=== PATIENT | male | born 1945 | race Caucasian/White ===

== ENCOUNTER 2017-02-13 13:23 | Observation (INO) | payer OTHER ==
[~2017-02-13] VITALS: Ht 180.3 cm; Wt 96.2 kg
[~2017-02-13 13:23] MED LIST: ADDERALL 15 MG15 MG PO; ALLOPURINOL100 M1 PO; AMLODIPINE BESYL5 M1 PO; ASPIRIN EC81 M1 PO; BRILINTA90 MG PO; BUPROPION XL150 MG PO; CLOPIDOGREL75 M1 PO; ELIQUIS5 M1 PO; FLU VACCINE 0.0.5 ML IM; JANUMET 50-1,01 EACH PO; LASIX20 M1 PO; LISINOPRIL20 MG PO; METOPROLOL SUCC25 MG PO; MOTRIN400 MG PO; PERCOCET 325 MG1 TA2 PO; PRAVACHOL80 M1 PO; TYLENOL XSTR500 MG PO; VALIUM5 MG PO
--- NOTE | 2017-02-13 13:36 | NUR ---
71 Y/O MALE C/O INTERMITTENT DIZZY SPELLS X 2 WEEKS; STATES "ITS QUICK BUT INTENSE". STATES EPISODES LAST 5-10 SECONDS AT A TIME. HAD TWO EPISODES TODAY. REPORTS NAUSEA WITH DIZZINESS. DENIES PAIN. DENIES SOB. DENIES CHANGES IN APPETITE/PO INTAKE. HAS NOT BEEN SPENDING A LOT OF TIME IN THE HEAT. SPEAKING CLEARLY WITH NO DEFICITS NOTED. TAKEN TO ROOM 12 FOR EKG AND EVAL
--- NOTE | 2017-02-13 13:55 | NUR ---
IV ESTABLISHED, ORTHOSTATIC'S COMPLETED BY CASSANDRA AYERS, PT PLACED ON LIBRARY ASSOCIATE, INFREQUENT PVC'S NOTED.
--- NOTE | 2017-02-13 13:56 | ED AMS/SEIZURE/WEAK/DIZZY ---
History of Present Illness General Chief Complaint: Dizziness Stated Complaint: DIZZY Source: patient, family, old records Exam Limitations: no limitations Vital Signs & Intake/Output Vital Signs & Intake/Output ED Intake and Output 02/15 0000 02/14 1200 Intake Total 600 Output Total 525 550 Balance 75 -550 Intake, Oral 600 Number 1 Bowel Movements Output, Urine 525 550 Patient 212 lb Weight Allergies Coded Allergies: NO KNOWN ALLERGIES (09/30/12) Reconcile Medications Allopurinol 100 MG TABLET 1 TAB PO DAILY GOUT (Reported) Amlodipine Besylate 5 MG TABLET 1 TAB PO DAILY BP (Reported) Apixaban (Eliquis) 5 MG TABLET 1 TAB PO BID anti-coagulation Aspirin (Ecotrin*) 81 MG TABLET.DR 1 TAB PO DAILY HEART HEALTH (Reported) Bupropion HCl (Bupropion XL) 150 MG TAB.ER.24H 1 TAB PO DAILY DEPRESSION ( Reported) Dextroamphetamine/Amphetamine (Adderall 15 MG Tablet) 15 MG TABLET 1 TAB PO DAILY ADD (Reported) Lisinopril 10 MG TABLET 1 TAB PO DAILY HEART (Reported) Metformin HCl 500 MG TABLET 1 TAB PO BID DIABETES (Reported) Metoprolol Tartrate 25 MG TABLET 1.5 TAB PO BID HEART (Reported) Pravastatin Sodium (Pravachol) 80 MG TABLET 1 TAB PO QPM CHOLESTEROL ( Reported) Triage Note: 71 Y/O MALE C/O INTERMITTENT DIZZY SPELLS X 2 WEEKS; STATES "ITS QUICK BUT INTENSE". STATES EPISODES LAST 5-10 SECONDS AT A TIME. HAD TWO EPISODES TODAY. REPORTS NAUSEA WITH DIZZINESS. DENIES PAIN. DENIES SOB. DENIES CHANGES IN APPETITE/PO INTAKE. HAS NOT BEEN SPENDING A LOT OF TIME IN THE HEAT. SPEAKING CLEARLY WITH NO DEFICITS NOTED. TAKEN TO ROOM 12 FOR EKG AND EVAL Triage Nurses Notes Reviewed? yes Onset: Abrupt Duration: 1.5 WEEKS Timing: single episode today Injury Environment: home Severity: moderate, severe No Modifying Factors: none Associated Symptoms: DIZZINESS, BLURRED VISION HPI: This is a 71-year-old male with history of coronary disease, 3 vessel bypass, aortic valve replacement and a MRSA procedure in October of this year who presents to the ER with chief complaint of episodes of dizziness. In the last 1-1/2 weeks he has had 4 episodes where he complains of an intense sensation of wanting to pass out. The episodes happen at rest. The resolve within 5-10 seconds. Occasionally has some nausea associated with the episode. Denies any headache. Denies any blurred vision Denies any chest pain or shortness of breath. He has been compliant with his medications. He states that he does not take anything for the episodes because they happen and resolved very spontaneously. Today it happened while he was in the car. He is awake alert and oriented 3. The states that since his surgery he has had a few episodes where he doesn't make sense or uses the wrong word. Patient reports that after this procedure in [place] he had a difficult time moving his right arm. He was seen by a neurologist that had a CAT scan at that time. CAT scan showed evidence of old TIAs. Faculty swallowing or speaking. No extremity strength weakness. No facial droop. At this time he is symptom-free. Past History Travel History Traveled to [facility] past 21 day No Medical History Any Pertinent Medical History? 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 FATHER (Heart disease). Hx Contributory? No Review of Systems Review of Systems Constitutional: Denies: chills, diaphoresis. EENTM: Reports: blurred vision (BRIEF WITH EPISODES). Respiratory: Denies: see HPI, orthopnea, short of breath, sputum production. Cardiovascular: Denies: chest pain, palpitations, peripheral edema. GI: Denies: abdominal pain, nausea, vomiting. Genitourinary: Denies: discharge, dysuria. Musculoskeletal: Denies: back pain. Skin: Reports: no symptoms. Neurological/Psychological: Reports: see HPI (DIZZINESS), confusion (OCCASIONAL PER WIFEW). Denies: headache, numbness, tremors. Hematologic/Endocrine: Denies: bruising, bleeding, polyuria, polydipsia. Immunologic/Allergic: Denies: splenectomy. All Other Systems: Reviewed and Negative Physical Exam Physical Exam General Appearance: well developed/nourished, alert, awake, mild distress Head: atraumatic, normal appearance Eyes: Bilateral: normal appearance, PERRL, EOMI. Ears, Nose, Throat: normal pharynx, normal ENT inspection, hearing grossly normal Neck: normal inspection, supple, full range of motion Respiratory: normal breath sounds, chest non-tender, no respiratory distress, HEALING STERNOTOMY WOUND Cardiovascular: regular rate/rhythm, murmur Peripheral Pulses: 2+ radial (R), 2+ radial (L) Gastrointestinal: normal bowel sounds, soft, non-tender Back: normal inspection, normal range of motion Extremities: normal range of motion Neurologic/Psych: no motor/sensory deficits, awake, alert, oriented x 3, normal gait, normal mood/affect Skin: intact, normal color, warm/dry Core Measures ACS in differential dx? No CVA/TIA Diagnosis: Yes NIH Stroke Scale: Total 0 Severe Sepsis Present: No Septic Shock Present: No Progress Differential Diagnosis: CVA/stroke, intracranial Hem., intracranial mass/tumor, vertebrobasilar insuff Plan of Care: Orders Procedure Date/time Status Heart Healthy Diet 02/[address] in observation 02/13 1634 Active ED Holding Orders 02/13 1634 Active Vital Signs 02/13 1634 Active MRI-HEAD W/O TIERA 02/13 1634 Active Code Status 02/13 1634 Active THYROID STIMULATING HORMONE 02/13 1415 Complete FREE T4 02/13 1415 Complete MISTAKE 02/13 1413 Active TROPONIN LEVEL 02/13 1413 Complete PARTIAL THROMBOPLASTIN TIME 02/13 1413 Complete PROTHROMBIN TIME 02/13 1413 Complete MAGNESIUM 02/13 1413 Complete COMPREHENSIVE METABOLIC PANEL 02/13 1413 Complete CBC WITHOUT DIFFERENTIAL 02/13 1413 Complete EKG 02/13 1334 Active Laboratory Tests 02/13/17 1415: TSH Cancelled, Free T4 Cancelled 02/13/17 1415: Anion Gap 11, Estimated GFR 60, BUN/Creatinine Ratio 15.0, Glucose 157 H, Calcium 9.7, Magnesium 2.0, Total Bilirubin 0.5, AST 41, ALT 56, Alkaline Phosphatase 129 H, Troponin I < 0.01, Total Protein 7.0, Albumin 4.3, Globulin 2.7, Albumin/Globulin Ratio 1.6, TSH 4.630 H, Free T4 1.18, PT 16.9 H, INR 1.62 H, APTT 28, CBC w Diff NO MAN DIFF REQ, RBC 4.39 L, MCV 81.6, MCH 26.5 L , RDW 15.8 H, MPV 10.8 H, Gran % 74.1, Lymphocytes % 14.0 L, Monocytes % 9.1, Eosinophils % 1.8, Basophils % 1.0, Absolute Granulocytes 5.4, Absolute Lymphocytes 1.0 L, Absolute Monocytes 0.7 H, Absolute Eosinophils 0.1, Absolute Basophils 0.1, PUBS MCHC 32.5 L Diagnostic Imaging: Viewed by Me: CT Scan. Discussed w/RAD: CT Scan. Initial ED EKG: NSR Rhythm Strip: normal sinus rhythm Comments: PATIENT: NEHEMIAH MOULTON PRESENT AGE: 71 PATIENT ACCOUNT NO: [id number] : 44 LOCATION: [facility] ORDERING PHYSICIAN: HILLARY CANTU MD SERVICE DATE: 02/13/17 EXAM TYPE: CAT - CT HEAD WO IV CONTRAST EXAMINATION: CT HEAD WITHOUT CONTRAST CLINICAL INFORMATION: Sudden onset of episodes of dizziness, 5 to 10 seconds. Feels near syncopal. Recent CABG and AVR. Evaluate for TIA/CVA. COMPARISON: CT scan of the head dated 07/05/2014 and 09/30/2012. TECHNIQUE: Contiguous axial imaging was performed from the skull base to vertex without intravenous administration of contrast. DLP: 615.74 mGy-cm FINDINGS: There is no evidence of acute intracranial hemorrhage or territorial infarction. There are, however, small lacunar infarction seen in the right and left centrum semiovale with slightly indistinct margins, suggesting acute or subacute etiology. These findings are new compared to the prior head CT scans. There is a chronic small lacunar infarction seen more superiorly within the left centrum semiovale, unchanged. No abnormal mass effect or midline shift is seen. Ceron to white matter differentiation is otherwise well preserved. No extra-axial fluid collections are identified. The ventricles are normal in size. Calcifications of the vertebral arteries and the carotid siphons are seen. The osseous structures and soft tissues of the head are normal. Moderate degenerative disc disease is seen at the C5-C6 level. The mastoid air cells and visualized portions of the paranasal sinuses are well aerated. IMPRESSION: 1. Small lacunar infarctions are seen in the right and left centrum semiovale, new from 07/05/2014, acute or subacute in etiology. Findings could be further assessed with MRI scan. 2. No evidence of acute intracranial hemorrhage or territorial infarction. Findings discussed with Dr. Cantu 02/13/2017, 3:35 PM. DICTATED BY: VERITO SOLIS MD DATE/TIME DICTATED:02/13/171521 PHYSICIAN INDUSTRIAL:JUAN ALBERTO DATE/TIME TRANSCRIBED:02/13/171521 CONFIDENTIAL, DO NOT COPY WITHOUT APPROPRIATE AUTHORIZATION. <Electronically signed in Other Vendor System> SIGNED BY: VERITO SOLIS MD 1541 Departure Departure Time of Disposition: 1634 Disposition: STILL A PATIENT Condition: Stable Clinical Impression Primary Impression: Dizziness Referrals: BRIELLE LUQUE,INOCENCIO Churchill (PCP/Family) Departure Forms: Customer Survey General Discharge Information Observation Note Spoke With: SHIRA GRIGGS MD Physician Advisor Notified: ERICK KENT DO Place Patient In: Non-ED OBS Care Area Rationale for Observation: My rational for observation is as follows [TELE MONITOR, MRI HEAD, NEURO CONSULTATION, PULL RECORDS FROM [place] ].
--- NOTE | 2017-02-13 14:22 | NUR ---
LABS DRAWN AND SENT (BLUE, SST X2, LAV, REN, PINK). PT OFFERS NO SIGNIFICANT COMPLAINTS AT THIS TIME.
[2017-02-13 14:27] LABS: ABSOLUTE BASOPHIL COUNT 0.1 /CUMM (0.0-0.2); ABSOLUTE EOSINOPHIL COUNT 0.1 /CUMM (0.0-0.7); ABSOLUTE GRANULOCYTE CT 5.4 /CUMM (1.4-6.5); ABSOLUTE MONOCYTE COUNT 0.7 /CUMM (0.10-0.60); EOSINOPHIL % 1.8 % (0-5); GRANULOCYTE % 74.1 % (42.2-75.2); HEMATOCRIT 35.8 % (42-52); MEAN CORPUSCULAR HGB 26.5 PG (27.0-31.0); MEAN CORPUSCULAR HGB CONC 32.5 G/DL (33.0-37.0); MEAN CORPUSCULAR VOLUME 81.6 FL (80.0-94.0); MEAN PLATELET VOLUME 10.8 FL (7.4-10.4); PLATELET COUNT 253 /CUMM (130-400); RBC DISTRIBUTION WIDTH 15.8 % (11.5-14.5); RED BLOOD CELL CT 4.39 /CUMM (4.70-6.10)
--- NOTE | 2017-02-13 14:29 | NUR ---
PT REQUESTING TO USE THE BATHROOM, ENCOURAGED PT TO USE URINAL DUE TO COMING TO THE EMERGENCY DEPT FOR DIZZINESS. PT REFUSING TO USE URINAL, REQUESTING TO BE REMOVED FROM DEPARTMENTAL BUYER AND WALK TO BATHROOM. PT EDUCATED ON RISKS AND REASONS WHY THIS RN IS CONCERNED ABOUT HIM WALKING TO BATHROOM AND PT STATING "DONT WORRY I KNOW ITS AGAINST MEDICAL ADVICE". THIS RN EXPRESSED SERIOUS CONCERNS REGARDING PATIENT SAFETY IN AMBULATING AND PT CONTINUES TO REFUSE TO USE URINAL.
[2017-02-13 14:35] LABS: PT 16.9 SEC (9.4-12.5); PTT 28 SEC (25-37)
[2017-02-13] MEDS ORDERED: METFORMIN HCL500 M3 PO (14:52)
[2017-02-13] MEDS ORDERED: LISINOPRIL10 M1 PO (14:52)
[2017-02-13] MEDS ORDERED: METOPROLOL TART25 M1 PO (14:53)
--- NOTE | 2017-02-13 15:41 | CT SCAN REPORT ---
EXAMINATION: CT HEAD WITHOUT CONTRAST CLINICAL INFORMATION: Sudden onset of episodes of dizziness, 5 to 10 seconds. Feels near syncopal. Recent CABG and AVR. Evaluate for TIA/CVA. COMPARISON: CT scan of the head dated 07/05/2014 and 09/30/2012. TECHNIQUE: Contiguous axial imaging was performed from the skull base to vertex without intravenous administration of contrast. DLP: 615.74 mGy-cm FINDINGS: There is no evidence of acute intracranial hemorrhage or territorial infarction. There are, however, small lacunar infarction seen in the right and left centrum semiovale with slightly indistinct margins, suggesting acute or subacute etiology. These findings are new compared to the prior head CT scans. There is a chronic small lacunar infarction seen more superiorly within the left centrum semiovale, unchanged. No abnormal mass effect or midline shift is seen. Ceron to white matter differentiation is otherwise well preserved. No extra-axial fluid collections are identified. The ventricles are normal in size. Calcifications of the vertebral arteries and the carotid siphons are seen. The osseous structures and soft tissues of the head are normal. Moderate degenerative disc disease is seen at the C5-C6 level. The mastoid air cells and visualized portions of the paranasal sinuses are well aerated. IMPRESSION: 1. Small lacunar infarctions are seen in the right and left centrum semiovale, new from 07/05/2014, acute or subacute in etiology. Findings could be further assessed with MRI scan. 2. No evidence of acute intracranial hemorrhage or territorial infarction. Findings discussed with Dr. Cantu 02/13/2017, 3:35 PM.
--- NOTE | 2017-02-13 15:45 | NUR ---
DR PERSON TO BEDSIDE TO DISCUSS RESULTS.
--- NOTE | 2017-02-13 16:13 | NUR ---
ALMA ITNERIANO AND DR PERSON ATTEMPTING TO COORDINATE OUTPATIENT MRI AT [facility], PT RESTING COMFORTABLY, DENIES ANY NEEDS AT THIS TIME.
--- NOTE | 2017-02-13 16:58 | History & Physical ---
KENDRA LUQUE,[facility] 02/13/17 1262: General Information and HPI MD Statement: I have seen and personally examined NEHEMIAH MOULTON and documented this H&P. The patient is a 71 year old M who presented with a patient stated chief complaint of dizziness Source of Information: patient, old records History of Present Illness: Patient is a 70-year-old man with a past medical history significant for coronary artery disease status post stent placement 2012 -after abnormal stress test (follows up with Dr. Rizvi), history of hypertension, aortic stenosis, history of depression, gout, diabetes mellitus presented to the ED with a chief complaints multiple episodes of dizziness. As per patient for the last week and a half he has been having several episodes of dizziness and a feeling that he will pass out, denies any episodes of passing out, nausea, vomiting, blurred vision, headache, shortness of breath, chest pain , palpitation, recent travels, fever, chills. Denies any recent changes in medication. Has been eating and drinking well. Denies any smoking, occasional alcohol use, denies any drug abuse. 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 Allergies/Medications Allergies: Coded Allergies: NO KNOWN ALLERGIES (09/30/12) Home Med list Allopurinol 100 MG TABLET 1 TAB PO DAILY GOUT (Reported) Amlodipine Besylate 5 MG TABLET 1 TAB PO DAILY BP (Reported) Apixaban (Eliquis) 5 MG TABLET 1 TAB PO BID anti-coagulation Aspirin (Ecotrin*) 81 MG TABLET.DR 1 TAB PO DAILY HEART HEALTH (Reported) Bupropion HCl (Bupropion XL) 150 MG TAB.ER.24H 1 TAB PO DAILY DEPRESSION ( Reported) Dextroamphetamine/Amphetamine (Adderall 15 MG Tablet) 15 MG TABLET 1 TAB PO DAILY ADD (Reported) Lisinopril 10 MG TABLET 1 TAB PO DAILY HEART (Reported) Metformin HCl 500 MG TABLET 1 TAB PO BID DIABETES (Reported) Metoprolol Tartrate 25 MG TABLET 1.5 TAB PO BID HEART (Reported) Pravastatin Sodium (Pravachol) 80 MG TABLET 1 TAB PO QPM CHOLESTEROL ( Reported) Compliance With Home Meds: GOOD Past History Travel History Traveled to [place] past 21 day No Medical History Neurological: TIA X2 EENT: NONE Cardiovascular: aortic stenosis, CAD, hypertension, hyperlipidemia Respiratory: NONE Gastrointestinal: NONE Hepatic: NONE Renal: KIDNEY STONES Musculoskeletal: gout Psychiatric: NONE Endocrine: diabetes Blood Disorders: HEPATITIS Cancer(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 FATHER (Heart disease). Psychosocial History Where do you live? Home Who Do You Live With? spouse Services at Home: None Primary Language: Tongan Smoking Status: Never Smoked ETOH Use: occasional use Illicit Drug Use: denies illicit drug use Functional Ability ADLs Independent: dressing, eating, toileting, bathing. Ambulation: independent IADLs Independent: shopping, housework, finances, food prep, telephone, transportation , medication admin. Review of Systems Review of Systems Constitutional: Denies: chills, fever. Cardiovascular: Denies: chest pain, palpitations. Respiratory: Denies: cough, short of breath, sputum production. GI: Denies: abdominal pain, constipation, diarrhea, nausea, vomiting. Genitourinary: Denies: dysuria, frequency. Exam & Diagnostic Data Last 24 Hrs of Vital Signs/I&O Vital Signs Date Time Temp Pulse Resp B/P B/P Pulse O2 O2 Flow FiO2 Mean Ox Delivery Rate 02/13 1859 98.5 73 20 156/80 95 Room Air 02/13 1745 97.8 73 18 172/79 96 02/13 1614 98.3 74 15 121/77 100 Room Air 02/13 1353 99 Room Air 02/13 1333 97.5 75 16 133/69 98 Room Air Intake & Output 02/13 1600 02/13 0800 02/13 0000 Intake Total 450 Output Total Balance 450 Intake, Oral 450 Patient 96.162 kg Weight Weight Reported by Patient Measurement Method Physical Exam General Appearance Alert, Oriented X3, Cooperative, No Acute Distress Cardiovascular Regular Rate, Normal S1, Normal S2, No Murmurs Lungs Clear to Auscultation, Normal Air Movement Abdomen Normal Bowel Sounds, Soft, No Tenderness Extremities No Clubbing, No Cyanosis, No Edema Last 24 Hrs of Labs/Zaid: Laboratory Tests 02/13/17 1415: TSH Cancelled, Free T4 Cancelled 02/13/17 1415: Anion Gap 11, Estimated GFR 60, BUN/Creatinine Ratio 15.0, Glucose 157 H, Calcium 9.7, Magnesium 2.0, Total Bilirubin 0.5, AST 41, ALT 56, Alkaline Phosphatase 129 H, Troponin I < 0.01, Total Protein 7.0, Albumin 4.3, Globulin 2.7, Albumin/Globulin Ratio 1.6, TSH 4.630 H, Free T4 1.18, PT 16.9 H, INR 1.62 H, APTT 28, CBC w Diff NO MAN DIFF REQ, RBC 4.39 L, MCV 81.6, MCH 26.5 L , RDW 15.8 H, MPV 10.8 H, Gran % 74.1, Lymphocytes % 14.0 L, Monocytes % 9.1, Eosinophils % 1.8, Basophils % 1.0, Absolute Granulocytes 5.4, Absolute Lymphocytes 1.0 L, Absolute Monocytes 0.7 H, Absolute Eosinophils 0.1, Absolute Basophils 0.1, PUBS MCHC 32.5 L Assessment/Plan Assessment: Patient is a 70-year-old man with a past medical history significant for coronary artery disease status post stent placement 2012 -after abnormal stress test (follows up with Dr. Rizvi), history of hypertension, aortic stenosis, history of depression, gout, diabetes mellitus presented to the ED with a chief complaint of multiple episodes of dizziness. Vitals upon presentation afebrile, pulse 75, respiratory rate 16, blood pressure 133/69, saturating in high 90s on room air. Pertinent labs H&H 11.6 and 35.8, otherwise is within normal limits. ED head did not show any acute intracranial abnormality, Small lacunar infarctions are seen in the right and left centrum semiovale Patient was admitted to telemetry floor and monitor for the following conditions. Dizziness: Continuous telemetry monitoring for any cardiac arrhythmias We'll trend EKG and troponins Echocardiogram done on 03/05/2016 showed ejection fraction of 55% No obvious regional wall motion abnormalities. Orthostatic vitals Cardiology consult PT evaluation in a.m. Diastolic heart failure(stage I) with preserved EF and moderate aortic stenosis: As per patient he stopped taking Lasix couple of weeks ago as per cardiology recommendations. History of fibrillation: We'll continue home dose of metoprolol and Eliquis. History of hypertension and coronary artery disease status post stent placement (2012) We'll continue home dose of we'll continue home dose of metoprolol, pravastatin, aspirin. History of diabetes Metformin on hold. NovoLog sliding scale. Fingerstick glucose monitoring Carbohydrate consistent diet . History of anxiety and depression: We'll continue home dose of bupropion. History of gout We'll continue home dose of allopurinol. History of ADHD Hold off of Adderall Mild pain particularly with Tylenol DVT prophylaxis Davis Patient is full code As Ranked By This Provider Problem List: 1. Dizziness Core Measures/Miscellaneous Acute Coronary Syndrome ACS Diagnosis: No Cerebrovascular Accident CVA/TIA Diagnosis: No Congestive Heart Failure CHF Diagnosis: No VTE (View Protocol) VTE Risk Factors: Acute medical illness, Age > 40 No [facility] VTE prophylaxis d/t: No contraindications No VTE Pharm Prophylaxis d/t: No contraindications VTE Diagnosis: No VTE Type: NONE VTE Confirmed by (Test): NONE Sepsis (View Protocol) Severe Sepsis Present: No Septic Shock Septic Shock Present: No Miscellaneous Documentation Attending Case Discussed With: SHIRA GRIGGS MD Primary Care Physician: INOCENCIO HANNAH MD Level of Patient Care: Telemetry SHIRA GRIGGS MD 02/13/17 2212: Attending MD Review Statement Attending Statement Attending MD Statement: examined this patient, discuss w/resident/PA/LEGAL EXECUTIVE ASSISTANT, agreed w/resident/PA/LEGAL EXECUTIVE ASSISTANT, reviewed EMR data (avail) Attending Assessment/Plan: 71M PMH recent 3v-CABG, AVR, with 4 episodes of sudden onset of lightheadedness in the past 2 weeks. No neurological symptoms, denies chest pain, palpitations, SOB. CT head showing old lacunar infarcts. Neuro exam normal. No active complaints at this time. Plan - Observation in telemetry - Trend cardiac enzymes and EKG - MRI head - Neurology and cardiology consults - Continue home medications including ASA and statin - DVT Ppx NEGRO MCCLAIN 02/13/17 2253: Core Measures/Miscellaneous Miscellaneous Documentation Patient sees these Specialists . Resident Review Statement Resident Statement: examined this patient, discussed with manager internal, agreed with manager internal Other Findings: This is a 71-year-old gentleman with past medical history significant for CAD status post 3v CABG, HTN, DM, gout, hyperlipidemia who presented to the ED w/CC of dizziness for 1.5 weeks. Please see above for more details. Ph/ex on admission: VSS, AAOx3, NAD neck supple no JVD, no carotid bruits. CV: RRR no murmur. Lungs CTABL. Abd: NL BS, NT,ND. Ext: No edema, pulses symmetrical. Neurology exam: CN 3-12 intact, sensation and reflexes NL. Passed bedside swallow evaluation test. Pertinent labs: Normocytic anemia, elevated ALKP, TSH: 4.630. Head CT reveals small lacunar infarcts in Rt and Lt centrum semiovale(acute vs subacute). Problem list: #Lacunar infarcts acute vs subacute #DM #HTN #Gout #hyperlipidemia Plan: * school lunch monitor * frequent neurochecks * Accuchecks;INS ss * MRI head * trend trop and EKGS * consider echocardiogram * carotid doppler * Pt is on low dose ASA which he takes at nights. Did not take ASA today. Will give full dose ASA today, resume low dose ASA starting tomorrow * Neurology and caridiology consults. * Will start the patient on high dose statin * PT/OT , fomral swallow evaluation * DVT ppx at all times * Pt is full code
--- NOTE | 2017-02-13 17:34 | NUR ---
[facility] 111, PT EATING DINNER QUIETLY, DENIES ANY ADDTL NEEDS AT THIS TIME
--- NOTE | 2017-02-13 17:41 | NUR ---
PT HAS BED ASSIGNMENT 182. RN NOTIFIED.
[2017-02-13 18:59] VITALS: BP 156/80
--- NOTE | 2017-02-13 21:46 | NUR ---
PT ARRIVED TO ROOM 182 AT ABOUT 1815 ON 02/13/17. VSS. NO C/O CP. NO RESPIRATORY DISTRESS. SPEECH CLEAR. FACIAL SYM WNL. PT ORRIENTED TO ROOM. PT ON STRICT I/O. AND STOOL NEEDS TO BE GUIAC. TWO HATS ARE IN TOILET. SAFETY MAINTAINED. [facility]
[2017-02-13 22:00] VITALS: BP 140/80
--- NOTE | 2017-02-14 07:16 | PN-Observation ---
KENDRA LUQUE,[facility] 02/14/17 0716: Observation Note Observation Note _ I have personally examined NEHEMIAH MOULTON. him disposition is uncertain at this time. Before a determination can be made, he requires continued observation for the following reasons dizziness, etiology not clear, patient to be seen by cardiology and neurology, Pending MRI, carotid Doppler. Assessment/Plan Assessment: Patient is a 70-year-old man with a past medical history significant for coronary artery disease status post stent placement 2012 -after abnormal stress test (follows up with Dr. Rizvi), history of hypertension, aortic stenosis, history of depression, gout, diabetes mellitus presented to the ED with a chief complaint of multiple episodes of dizziness. Vitals upon presentation afebrile, pulse 75, respiratory rate 16, blood pressure 133/69, saturating in high 90s on room air. Pertinent labs H&H 11.6 and 35.8, otherwise is within normal limits. ED head did not show any acute intracranial abnormality, Small lacunar infarctions are seen in the right and left centrum semiovale Patient was admitted to telemetry floor and monitor for the following conditions. Dizziness: Continuous telemetry monitoring for any cardiac arrhythmias EKG and troponins negative CT head showed evidence of lacunar infarcts unsure if acute or chronic, will get MRI for more clarification Patient to get carotid Dopplers today Echocardiogram done on 03/05/2016 showed ejection fraction of 55% No obvious regional wall motion abnormalities. Orthostatic vitals Cardiology consult placed PT evaluation. Diastolic heart failure(stage I) with preserved EF and moderate aortic stenosis: As per patient he stopped taking Lasix couple of weeks ago as per cardiology recommendations. History of fibrillation: We'll continue home dose of metoprolol and Eliquis. History of hypertension and coronary artery disease status post stent placement (2012) We'll continue home dose of we'll continue home dose of metoprolol, pravastatin, aspirin. History of diabetes Metformin on hold. NovoLog sliding scale. Fingerstick glucose monitoring Carbohydrate consistent diet . History of anxiety and depression: We'll continue home dose of bupropion. History of gout We'll continue home dose of allopurinol. History of ADHD Hold off of Adderall Mild pain particularly with Tylenol DVT prophylaxis Eliquis Patient is full code Problem List: 1. Dizziness Subjective Review of Systems Constitutional: Reports: see HPI. Objective Last 24 Hrs of Vital Signs/I&O Vital Signs Date Time Temp Pulse Resp B/P B/P Pulse O2 O2 Flow FiO2 Mean Ox Delivery Rate 02/14 0937 68 160/78 02/14 0800 98.2 68 18 160/78 96 Room Air 02/13 2200 98.3 78 17 140/80 99 Room Air 02/13 2129 78 140/80 02/13 1859 98.5 73 20 156/80 95 Room Air 02/13 1745 97.8 73 18 172/79 96 02/13 1614 98.3 74 15 121/77 100 Room Air 02/13 1353 99 Room Air 02/13 1333 97.5 75 16 133/69 98 Room Air Intake & Output 02/14 1600 02/14 0800 02/14 0000 Intake Total 110 Output Total 550 600 Balance -550 -490 Intake, IV 10 Intake, Oral 100 Output, Urine 550 600 Patient 96.162 kg 96.162 kg Weight Physical Exam General Appearance: Alert, Oriented X3, Cooperative, No Acute Distress Cardiovascular: Regular Rate, Normal S1, Normal S2 Lungs: Clear to Auscultation, Normal Air Movement Abdomen: Normal Bowel Sounds, Soft, No Tenderness Extremities: No Clubbing, No Cyanosis, No Edema INDU LUQUE,CAMELIA 02/14/17 1332: Observation Note Observation Note _ I have personally examined NEHEMIAH MOULTON. him disposition is uncertain at this time. Before a determination can be made, he requires continued observation for the following reasons []. Patient seen and examined. Plan of care discussed with the medical team. Patient is status post the MRI and the echocardiogram. Echocardiogram is waiting for report by cardiology. Patient is points the doing well and denies any further episodes of dizziness. His vital signs are currently stable. Patient has been able to ambulate without any difficulties. His troponins have been negative. MRI report was reviewed. Neurology and there are cardiac consult notes were reviewed. echo report: Normal LV chamber size, wall thickness and systolic function. The estimated LVEF is 50%. There are no focal wall motion of modalities. There is mild septal wall dyssynchrony. Mildly calcified mitral valve annulus and leaflets with normal leaflet opening. There is mild mitral regurgitation. There is a bioprosthetic aortic valve with a well-seated annulus. Leaflet motion appears normal. The mean transvalvular gradient is 7 mmHg. There is no aortic insufficiency. There is no evidence for an intracardiac shunt by agitated saline injection. No cardiac source of embolism was seen by this study; however, one cannot be excluded through a transthoracic echo Plan * Patient possibly can be discharged home * Plan is to continue home medications * Patient can be given a trial of Antivert to see if this will reduce his symptoms * Plan for loop recorder as outpatient to monitor for any arrhythmia
--- NOTE | 2017-02-14 07:56 | NUR ---
NOTIFIED [employer] DR GARDNER #[id number] OF PATIENT REPORTED SLIGHT LIGHTHEADEDNESS AND MILD NAUSEA AT THIS TIME. PATIENT RECLINED IN RECLINER. CALL BUTCHER IN REACH. SIEVE GRADER TENDER IN TO EVALUATE PATIENT.
[2017-02-14 08:00] VITALS: BP 160/78
--- NOTE | 2017-02-14 08:06 | NUR ---
TO MRI VIA WHEELCHAIR. DOOR HANGER AND ELECTRODES REMOVED. ALERT ORIENTED X 3.
--- NOTE | 2017-02-14 08:44 | NUR ---
SPEECH THERAPY: ORDERS FOR SWALLOW EVAL RECEIVED, CHART REVIEWED, PT CURRENTLY ADALGISA FOR MRI. WILL ATTEMPT EVAL LATER TODAY. PER RN, NO DIFFICULTY SWALLOWING OR SPEAKING NOTED.
--- NOTE | 2017-02-14 09:18 | MRI REPORT ---
EXAMINATION: MR BRAIN WITHOUT CONTRAST CLINICAL INFORMATION: Left centrum semiovale. Presumptive cerebrovascular accident. COMPARISON: Brain MRI 09/30/2012. TECHNIQUE: MRI of the brain without contrast was obtained using routine sequences. FINDINGS: There are scattered foci of signal hyperintensity within the left and right centrum semiovale with no corresponding low ADC values that most likely represent subacute to chronic small vessel ischemic white matter ischemic changes. These findings are superimposed upon numerous foci of T2 FLAIR signal hyperintensity within the perivenular white matter and marjorie. No evidence of acute territorial infarct. A few scattered foci of subcortical magnetic susceptibility artifact are visualized for instance within the left cerebral hemisphere best illustrated on axial image 15 of 24 series 6. Intracranial vascular flow voids including the major dural venous sinuses are preserved. There is no intracranial mass effect or midline shift. No abnormal extra axial collection. Lateral and third ventricles are normal. No hydrocephalus. Midline structures including the cervicomedullary junction are normal. Bone marrow signal intensity is normal. There is no mastoid or middle ear effusion. Mild paranasal sinus disease primarily affecting the ethmoid air cells. Lobulated mucosal thickening is visualized within the alveolar recess of the maxillary sinuses. Globes and orbits are symmetric. IMPRESSION: A few scattered signal changes within the right and left centrum semiovale are felt to represent a manifestation of subacute to chronic white matter ischemic changes among a background of small vessel ischemia involving the periventricular white matter and marjorie. No evidence of acute territorial infarct. Nonspecific findings within the subcortical white matter raises the question of underlying cerebral amyloid angiopathy.
--- NOTE | 2017-02-14 09:20 | NUR ---
BACK FROM MRI. ALERT ORIENTED X3. PLACED BACK ON MONITOR. NO COMPLAINTS. SET UP PATIENT INTO KITCHENETTE FOR BREAKFAST PER PATIENT REQUEST.
[2017-02-14 09:37] VITALS: BP 160/78
--- NOTE | 2017-02-14 10:04 | NUR ---
Physical Therapy - Consult received and chart reviewed, pt observed ambulating independently around unit without deviations or unsteadiness. Assessment for BPPV negative: Ocular motility WNL VOR intact No nystagmus with head shaking/gaze Positional testing negative NO acute PT needs identified at this time therefore will not follow. Please reconsult if condition changes. Thank you.
--- NOTE | 2017-02-14 10:54 | Cons- Neurology ---
General Information and HPI Consulting Request Date of Consult: 02/14/17 Requested By: CAMELIA GRIGGS MD Reason for Consult: dizziness Source of Information: patient Exam Limitations: no limitations History of Present Illness: This is a very pleasant 72-year-old man with multiple cardiovascular risk factors who most recently underwent an aortic valve replacement and underwent ablation for atrial fibrillation and is currently still on anticoagulation and aspirin, who presented to the hospital due to 4 episodes of fleeting dizziness that occurred over the last week. He denies any associated headache or any other focal symptoms and was never an appointment of near syncope. The episodes occur at any position and can occur at rest. He lasts only seconds long. An MRI was obtained and while in the hospital and showed faint diffusion positive lesions within the left hemisphere that may suggest a small subacute embolic shower. He is otherwise fine. Allergies/Medications Allergies: Coded Allergies: NO KNOWN ALLERGIES (09/30/12) Home Med List: Allopurinol 100 MG TABLET 1 TAB PO DAILY GOUT (Reported) Amlodipine Besylate 5 MG TABLET 1 TAB PO DAILY BP (Reported) Apixaban (Eliquis) 5 MG TABLET 1 TAB PO BID anti-coagulation Aspirin (Ecotrin*) 81 MG TABLET.DR 1 TAB PO DAILY HEART HEALTH (Reported) Bupropion HCl (Bupropion XL) 150 MG TAB.ER.24H 1 TAB PO DAILY DEPRESSION ( Reported) Dextroamphetamine/Amphetamine (Adderall 15 MG Tablet) 15 MG TABLET 1 TAB PO DAILY ADD (Reported) Lisinopril 10 MG TABLET 1 TAB PO DAILY HEART (Reported) Metformin HCl 500 MG TABLET 1 TAB PO BID DIABETES (Reported) Metoprolol Tartrate 25 MG TABLET 1.5 TAB PO BID HEART (Reported) Pravastatin Sodium (Pravachol) 80 MG TABLET 1 TAB PO QPM CHOLESTEROL ( Reported) Current Medications: Current Medications Sig/Rigoberto Start time Last Medication Dose Route Stop Time Status Admin Allopurinol 100 MG AT BEDTIME 02/140 DC PO Allopurinol 100 MG DAILY 02/14 1000 DC PO Allopurinol 100 MG AT BEDTIME 02/13 2200 AC 02/13 PO 2235 Amlodipine Besylate 5 MG DAILY 02/14 1000 AC 02/14 PO 0937 Apixaban 5 MG BID 02/130 AC 02/14 PO 0937 Aspirin 325 MG ONCE ONE 02/13 1930 DC PO 02/13 1931 Aspirin 325 MG ONCE ONE 02/13 1800 DC 02/13 PO 02/13 1801 2129 Aspirin Buffered 81 MG DAILY 02/14 1000 AC 02/14 PO 0937 Atorvastatin Calcium 80 MG 1700 02/14 1700 DC PO Atorvastatin Calcium 80 MG 1700 02/13 2200 AC 02/13 PO 2235 Insulin Aspart 0 TIDAC 02/14 0800 AC SC Lisinopril 10 MG DAILY 02/14 1000 AC 02/14 PO 0937 Metoprolol Tartrate 37.5 MG BID 02/13 2200 AC 02/14 PO 0937 Review of Systems Review of Systems: As per HPI otherwise negative to the 10 point complete review of system. 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 FATHER (Heart disease). Psychosocial History Where Do You Live? Home Who Do You Live With? spouse Services at Home: None Primary Language: Syriac Smoking Status: Never Smoked ETOH Use: occasional use Illicit Drug Use: denies illicit drug use Functional Ability ADLs Independent: dressing, eating, toileting, bathing. Ambulation: independent IADLs Independent: shopping, housework, finances, food prep, telephone, transportation , medication admin. Exam & Diagnostic Data Vital Signs and I&O Vital Signs Date Time Temp Pulse Resp B/P B/P Pulse O2 O2 Flow FiO2 Mean Ox Delivery Rate 02/14 0937 68 160/78 02/14 0800 98.2 68 18 160/78 96 Room Air 02/13 2200 98.3 78 17 140/80 99 Room Air 02/13 2129 78 140/80 02/13 1859 98.5 73 20 156/80 95 Room Air 02/13 1745 97.8 73 18 172/79 96 02/13 1614 98.3 74 15 121/77 100 Room Air 02/13 1353 99 Room Air 02/13 1333 97.5 75 16 133/69 98 Room Air Intake & Output 02/14 1600 02/14 0800 02/14 0000 Intake Total 110 Output Total 550 600 Balance -550 -490 Intake, IV 10 Intake, Oral 100 Output, Urine 550 600 Patient 212 lb 212 lb Weight Physical Exam: General: The patient is in no distress. Pleasant and cooperative. MSE: Alert and oriented 3. Good attention and concentration. Good short-term memory and fund of knowledge reflected through our conversation. Language is fluent with good comprehension and repetition. Cardiovascular: S1 and S2 are normal, regular rate and rhythm, and normal pedal pulses. Vision: Fundoscopic exam does not reveal any abnormalties. Visual gonzáles are intact. Neurological: Extra ocular movements intact, CECILLE, face is symmetric, tongue midline, uvula raises equally in the midline, V1-V3 sensation to touch is intact and equal bilaterallty, sternocleidomastoid and trapezius are strong on both sides, muscles of mastication are strong. No dysarthria noted. Motor exam reveals no abnormality of strength. Power is 5-5 throughout the distribution distally and proximally. Sensory exam did not reveal any deficits to touch, temperature, vibration and proprioception. Reflexes are symmetric bilaterally. Cerebellar exam does not reveal any dysmetria. Rapid alternating movements are intact bilaterally. Gait is steady with normal base. Last 48 Hours of Lab Results: Laboratory Tests 02/14 02/13 02/13 0440 2215 1415 Chemistry Troponin I (<0.11 ng/ml) 0.02 0.02 TSH Cancelled Free T4 Cancelled 02/13 1415 Chemistry Sodium (137 - 145 mmol/L) 138 Potassium (3.5 - 5.1 mmol/L) 4.0 Chloride (98 - 107 mmol/L) 100 Carbon Dioxide (22 - 30 mmol/L) 26 Anion Gap (5 - 16) 11 BUN (9 - 20 mg/dL) 18 Creatinine (0.7 - 1.2 mg/dL) 1.2 Estimated GFR (>60 ml/min) 60 BUN/Creatinine Ratio (7 - 25 %) 15.0 Glucose (65 - 99 mg/dL) 157 H Calcium (8.4 - 10.2 mg/dL) 9.7 Magnesium (1.6 - 2.3 mg/dL) 2.0 Total Bilirubin (0.2 - 1.3 mg/dL) 0.5 AST (17 - 59 U/L) 41 ALT (21 - 72 U/L) 56 Alkaline Phosphatase (< 127 U/L) 129 H Troponin I (<0.11 ng/ml) < 0.01 Total Protein (6.3 - 8.2 g/dL) 7.0 Albumin (3.5 - 5.0 g/dL) 4.3 Globulin (1.9 - 4.2 gm/dL) 2.7 Albumin/Globulin Ratio (1.1 - 2.2 %) 1.6 TSH (0.270 - 4.200 uIU/mL) 4.630 H Free T4 (0.78 - 2.44 ng/dL) 1.18 Coagulation PT (9.4 - 12.5 SEC) 16.9 H INR (0.90 - 1.17) 1.62 H APTT (25 - 37 SEC) 28 Hematology CBC w Diff NO MAN DIFF REQ WBC (4.8 - 10.8 /CUMM) 9.0 RBC (4.70 - 6.10 /CUMM) 4.39 L Hgb (14.0 - 18.0 G/DL) 11.6 L Hct (42 - 52 %) 35.8 L MCV (80.0 - 94.0 FL) 81.6 MCH (27.0 - 31.0 PG) 26.5 L RDW (11.5 - 14.5 %) 15.8 H Plt Count (130 - 400 /CUMM) 253 MPV (7.4 - 10.4 FL) 10.8 H Gran % (42.2 - 75.2 %) 74.1 Lymphocytes % (20.5 - 51.1 %) 14.0 L Monocytes % (1.7 - 9.3 %) 9.1 Eosinophils % (0 - 5 %) 1.8 Basophils % (0.0 - 2.0 %) 1.0 Absolute Granulocytes (1.4 - 6.5 /CUMM) 5.4 Absolute Lymphocytes (1.2 - 3.4 /CUMM) 1.0 L Absolute Monocytes (0.10 - 0.60 /CUMM) 0.7 H Absolute Eosinophils (0.0 - 0.7 /CUMM) 0.1 Absolute Basophils (0.0 - 0.2 /CUMM) 0.1 PUBS MCHC (33.0 - 37.0 G/DL) 32.5 L Imaging/Other Studies: IMPRESSION: A few scattered signal changes within the right and left centrum semiovale are felt to represent a manifestation of subacute to chronic white matter ischemic changes among a background of small vessel ischemia involving the periventricular white matter and marjorie. No evidence of acute territorial infarct. Nonspecific findings within the subcortical white matter raises the question of underlying cerebral amyloid angiopathy. Assessment/Plan Assessment: 71-year-old man with multiple cardiovascular risk factors on full preventative therapy for stroke including Eliquis and aspirin, with the fleeting episodic dizziness. I'm not convinced that the faint diffusion positive lesions have anything to do with his dizziness." In any case he is already on a full regimen of prevention. Focus on further monitoring. I also do not think he has cerebral amyloid angiopathy but rather that his microhemorrhages are secondary to previous hypertension. Recommendations: 1. Echocardiogram to look at aortic fall. 2. Consider loop monitor to monitor fleeting atrial fibrillation. Otherwise no need for EEG as this is not a presentation of seizure. Neurology signing off. Consult Acknowledgment - Thank you for your consult request.
--- NOTE | 2017-02-14 11:45 | Cons- Cardiology ---
General Information and HPI Consulting Request Date of Consult: 02/14/17 Requested By: CAMELIA GRIGGS MD Reason for Consult: Dizziness Source of Information: patient, old records Exam Limitations: no limitations History of Present Illness: The patient is a 71-year-old gentleman with a past medical history of coronary artery disease (status post prior stenting as well as coronary artery bypass surgery), aortic stenosis (status post aortic valve replacement in [place] one year ago), atrial fibrillation (status post Maze procedure at time of valve replacement), diabetes mellitus and hypertension. He presented to our hospital for episodes of severe dizziness and near syncope. The patient states having episodes of severe dizziness and near syncope, lasting several seconds and occurring regard to physical activity or position. There has been no actual syncope, and the patient is unaware of concurrent symptoms of palpitations, chest pain nor dyspnea. The patient otherwise states he is active, maintaining regular physical activity and continues cardiac rehabilitation. He describes performance of greater than 6 METs of physical activity on a regular basis. This does not trigger episodes. Outpatient testing has as well not demonstrated further atrial fibrillation since his Maze procedure. While on telemetry, isolated PVCs only have been seen. Following admission, an MRI was obtained which demonstrated lesions within the left hemisphere that may suggest a small subacute embolic event. Allergies/Medications Allergies: Coded Allergies: NO KNOWN ALLERGIES (09/30/12) Home Med List: Allopurinol 100 MG TABLET 1 TAB PO DAILY GOUT (Reported) Amlodipine Besylate 5 MG TABLET 1 TAB PO DAILY BP (Reported) Apixaban (Eliquis) 5 MG TABLET 1 TAB PO BID anti-coagulation Aspirin (Ecotrin*) 81 MG TABLET.DR 1 TAB PO DAILY HEART HEALTH (Reported) Bupropion HCl (Bupropion XL) 150 MG TAB.ER.24H 1 TAB PO DAILY DEPRESSION ( Reported) Dextroamphetamine/Amphetamine (Adderall 15 MG Tablet) 15 MG TABLET 1 TAB PO DAILY ADD (Reported) Lisinopril 10 MG TABLET 1 TAB PO DAILY HEART (Reported) Metformin HCl 500 MG TABLET 1 TAB PO BID DIABETES (Reported) Metoprolol Tartrate 25 MG TABLET 1.5 TAB PO BID HEART (Reported) Pravastatin Sodium (Pravachol) 80 MG TABLET 1 TAB PO QPM CHOLESTEROL ( Reported) Current Medications: Current Medications Sig/Rigoberto Start time Last Medication Dose Route Stop Time Status Admin Allopurinol 100 MG AT BEDTIME 02/14 2200 DC PO Allopurinol 100 MG DAILY 02/14 1000 DC PO Allopurinol 100 MG AT BEDTIME 02/13 2200 AC 02/13 PO 2235 Amlodipine Besylate 5 MG DAILY 02/14 1000 AC 02/14 PO 0937 Apixaban 5 MG BID 02/13 2200 AC 02/14 PO 0937 Aspirin 325 MG ONCE ONE 02/13 1930 DC PO 02/13 193 Aspirin 325 MG ONCE ONE 02/13 1800 DC 02/13 PO 02/13 1801 2129 Aspirin Buffered 81 MG DAILY 02/14 1000 AC 02/14 PO 0937 Atorvastatin Calcium 80 MG 1700 02/14 1700 DC PO Atorvastatin Calcium 80 MG 1700 02/13 2200 AC 02/13 PO 2235 Insulin Aspart 0 TIDAC 02/14 0800 AC SC Lisinopril 10 MG DAILY 02/14 1000 AC 02/14 PO 0937 Metoprolol Tartrate 37.5 MG BID 02/13 2200 AC 02/14 PO 0937 Review of Systems Review of Systems: The review of systems is negative for chest pains, palpitations. Lightheadedness as above The remainder of the 14 point review of systems is noncontributory with the exception of above. 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 FATHER (Heart disease). Psychosocial History Where Do You Live? Home Who Do You Live With? spouse Services at Home: None Primary Language: Grenadian Smoking Status: Never Smoked ETOH Use: occasional use Illicit Drug Use: denies illicit drug use Functional Ability ADLs Independent: dressing, eating, toileting, bathing. Ambulation: independent IADLs Independent: shopping, housework, finances, food prep, telephone, transportation , medication admin. Exam & Diagnostic Data Vital Signs and I&O Vital Signs Date Time Temp Pulse Resp B/P B/P Pulse O2 O2 Flow FiO2 Mean Ox Delivery Rate 02/14 0937 68 160/78 02/14 0800 98.2 68 18 160/78 96 Room Air 06/20 2200 98.3 78 17 140/80 99 Room Air 02/13 2129 78 140/80 02/13 1859 98.5 73 20 156/80 95 Room Air 02/13 1745 97.8 73 18 172/79 96 02/13 1614 98.3 74 15 121/77 100 Room Air 02/13 1353 99 Room Air 02/13 1333 97.5 75 16 133/69 98 Room Air Intake & Output 02/14 1600 02/14 0800 02/14 0000 02/13 1600 02/13 0802/13 0000 Intake Total 110 450 Output Total 550 600 Balance -550 -490 450 Intake, IV 10 Intake, Oral 100 450 Output, Urine 550 600 Patient 212 lb 212 lb 212 lb Weight Weight Reported by Patient Measurement Method Physical Exam: General: Nontoxic, no apparent distress. HEENT: Sclera and conjunctiva within normal limits, without xanthelasmas. Neck: Carotids 2+ without bruits. Respiratory: Clear to auscultation, air movement is good, without accessory respiratory muscle use. Heart: Regular rate and rhythm, without murmurs, without JVD, poststernotomy Abdomen: Soft, nontender, no masses, normoactive bowel sounds. Extremities: Without clubbing, cyanosis, without edema. Neuro: Nonfocal exam, strength, 5 out of 5 Skin: Within normal limits without lesions. Psych: Mood and affect: Normal Labs/Zaid Results: Laboratory Tests 02/14 02/13 02/13 0440 2215 1415 Chemistry Troponin I (<0.11 ng/ml) 0.02 0.02 TSH Cancelled Free T4 Cancelled 02/13 1415 Chemistry Sodium (137 - 145 mmol/L) 138 Potassium (3.5 - 5.1 mmol/L) 4.0 Chloride (98 - 107 mmol/L) 100 Carbon Dioxide (22 - 30 mmol/L) 26 Anion Gap (5 - 16) 11 BUN (9 - 20 mg/dL) 18 Creatinine (0.7 - 1.2 mg/dL) 1.2 Estimated GFR (>60 ml/min) 60 BUN/Creatinine Ratio (7 - 25 %) 15.0 Glucose (65 - 99 mg/dL) 157 H Calcium (8.4 - 10.2 mg/dL) 9.7 Magnesium (1.6 - 2.3 mg/dL) 2.0 Total Bilirubin (0.2 - 1.3 mg/dL) 0.5 AST (17 - 59 U/L) 41 ALT (21 - 72 U/L) 56 Alkaline Phosphatase (< 127 U/L) 129 H Troponin I (<0.11 ng/ml) < 0.01 Total Protein (6.3 - 8.2 g/dL) 7.0 Albumin (3.5 - 5.0 g/dL) 4.3 Globulin (1.9 - 4.2 gm/dL) 2.7 Albumin/Globulin Ratio (1.1 - 2.2 %) 1.6 TSH (0.270 - 4.200 uIU/mL) 4.630 H Free T4 (0.78 - 2.44 ng/dL) 1.18 Coagulation PT (9.4 - 12.5 SEC) 16.9 H INR (0.90 - 1.17) 1.62 H APTT (25 - 37 SEC) 28 Hematology CBC w Diff NO MAN DIFF REQ WBC (4.8 - 10.8 /CUMM) 9.0 RBC (4.70 - 6.10 /CUMM) 4.39 L Hgb (14.0 - 18.0 G/DL) 11.6 L Hct (42 - 52 %) 35.8 L MCV (80.0 - 94.0 FL) 81.6 MCH (27.0 - 31.0 PG) 26.5 L RDW (11.5 - 14.5 %) 15.8 H Plt Count (130 - 400 /CUMM) 253 MPV (7.4 - 10.4 FL) 10.8 H Gran % (42.2 - 75.2 %) 74.1 Lymphocytes % (20.5 - 51.1 %) 14.0 L Monocytes % (1.7 - 9.3 %) 9.1 Eosinophils % (0 - 5 %) 1.8 Basophils % (0.0 - 2.0 %) 1.0 Absolute Granulocytes (1.4 - 6.5 /CUMM) 5.4 Absolute Lymphocytes (1.2 - 3.4 /CUMM) 1.0 L Absolute Monocytes (0.10 - 0.60 /CUMM) 0.7 H Absolute Eosinophils (0.0 - 0.7 /CUMM) 0.1 Absolute Basophils (0.0 - 0.2 /CUMM) 0.1 PUBS MCHC (33.0 - 37.0 G/DL) 32.5 L Assessment/Plan Assessment/Plan 71-year-old gentleman with a past medical history of coronary artery disease ( status post prior stenting as well as coronary artery bypass surgery), aortic stenosis (status post aortic valve replacement in [place] one year ago), atrial fibrillation (status post Maze procedure at time of valve replacement), diabetes mellitus and hypertension. He presented to our hospital for episodes of severe dizziness and near syncope. Dizziness: The MRI findings may be consistent with embolic event; however, the patient is currently anticoagulated and plans with the same. He has not had further atrial fibrillation noted by monitoring. The duration of his episodes as well suggest that this is unlikely embolic in etiology. The patient has a preserved LV systolic function by prior echocardiogram; however, given PVCs noted on telemetry monitoring, the possibility of an arrhythmic event causing symptoms is present. We will continue monitoring on telemetry, and if no events are seen, we'll consider a 30 day event monitor to be taken home (previous normal Holter no events on telemetry). He will maintain his regimen of metoprolol. An echocardiogram with saline contrast will be obtained to exclude a potential atrial septal defect; however, a CVA secondary to the same is as well unlikely in the etiology of his symptoms Coronary artery disease: Stable, we'll continue to follow Status post bioprosthetic aortic valve replacement: Stable, we will continue to follow. Atrial fibrillation: The patient is status post Maze procedure and left atrial appendage ligation. He remains on L course and we will continue with the same. Thank you for allowing us to participate in the care of your patient. Please do not hesitate to contact us further with any questions. Sincerely, Neel Simpson MD [facility] Consult Acknowledgment - Thank you for your consult request.
--- NOTE | 2017-02-14 12:06 | ULTRASOUND REPORT ---
EXAMINATION: DUPLEX BILATERAL CAROTID ULTRASOUND CLINICAL INFORMATION: 2 episodes of severe dizziness. Risk factors include diabetes, hypertension and hyperlipidemia. COMPARISON: 09/30/2012 TECHNIQUE: Duplex bilateral carotid US was performed using real-time ultrasound and Doppler techniques (integrating B-mode 2D vascular images, Doppler spectral analysis and color flow Doppler imaging). These techniques were utilized to interrogate the extracranial carotid and vertebral arteries bilaterally. The degree of stenosis is based off criteria similar to NASCET. FINDINGS: 1. On the right: Plaque is present at the carotid bifurcation but velocity measurements are normal and do not suggest a stenosis of greater than 50% diameter reduction in the right ICA. The vertebral artery is patent demonstrating antegrade flow. 2. On the left: Plaque is present at the carotid bifurcation but velocity measurements are normal and do not suggest a stenosis of greater than 50% diameter reduction in the left ICA. The vertebral artery is patent demonstrating antegrade flow. The external carotid arteries appear unremarkable. Incidental note is made of a hypoechoic right thyroid nodule measuring 1.1 x 0.5 x 0.6 cm. A right-sided thyroid nodule was previously identified measuring 0.8 x 0.6 x 0.4 cm on the prior study from 2012. IMPRESSION: 1. Plaque is present in the internal carotid arteries but velocity measurements are normal and there is no evidence to suggest a hemodynamically significant stenosis of greater than 50% diameter reduction. 2. Incidental note is made of an enlarging right thyroid lobe nodule. Dedicated thyroid ultrasound imaging is recommended for further evaluation prior to consideration of biopsy.
--- NOTE | 2017-02-14 12:19 | ECHOCARDIOGRAM REPORT ---
NEHEMIAH MOULTON Age: 71 : 1945 Gender: M Exam Date: 02/14/2017 11:08 Exam Location: 1 [address] Ht (in): 71 Wt (lb): 212 BSA: 2.22 BP: 160 / 78 Ordering Physician: SHANELL DAVID MD Referring Physician: SHANELL DAVID MD Technologist: Jl Chester [facility] Room Number: 182-1 Indications: CARDIOMYOPATHY Rhythm: Technical Quality: FINDINGS Left Ventricle Normal LV chamber size, wall thickness and systolic function. The estimated LVEF is 50%. There are no focal wall motion of modalities. There is mild septal wall dyssynchrony. Right Ventricle Grossly normal RV chamber size and function Right Atrium Normal right atrial size Left Atrium Mildly dilated left atrial size Mitral Valve Mildly calcified mitral valve annulus and leaflets with normal leaflet opening. There is mild mitral regurgitation. Aortic Valve There is a bioprosthetic aortic valve with a well-seated annulus. Leaflet motion appears normal. The mean transvalvular gradient is 7 mmHg. There is no aortic insufficiency. Tricuspid Valve Normal appearing tricuspid valvular leaflet structure and function. There is trace aortic insufficiency Pulmonic Valve Suboptimally visualized; however, grossly normal pulmonic valve Pericardium Normal-appearing pericardium Great Vessels Normal great vessels CONCLUSIONS Normal LV chamber size, wall thickness and systolic function. The estimated LVEF is 50%. There are no focal wall motion of modalities. There is mild septal wall dyssynchrony. Mildly calcified mitral valve annulus and leaflets with normal leaflet opening. There is mild mitral regurgitation. There is a bioprosthetic aortic valve with a well-seated annulus. Leaflet motion appears normal. The mean transvalvular gradient is 7 mmHg. There is no aortic insufficiency. There is no evidence for an intracardiac shunt by agitated saline injection. No cardiac source of embolism was seen by this study; however, one cannot be excluded through a transthoracic echo Neel Simpson M.D. (Electronically Signed) Final Date: 14 February 2017 12:18 MEASUREMENTS (Male / Female) Normal Values 2D ECHO LV Diastolic Diameter PLAX 5.3 cm 4.2 - 5.9 / 3.9 - 5.3 cm LV Systolic Diameter PLAX 4.1 cm 2.1 - 4.0 cm LV Fractional Shortening PLAX 22.6 % 25 - 46 % LV Ejection Fraction 2D Teich 45.2 % IVS Diastolic Thickness 0.9 cm LVPW Diastolic Thickness 0.9 cm LV Relative Wall Thickness 0.3 RV Internal Dim ED PLAX 3.8 cm 1.9 - 3.8 cm LVOT Diameter 1.8 cm Aortic Root Diameter 2.8 cm LA Systolic Diameter LX 4.8 cm 3.0 - 4.0 / 2.7 - 3.8 cm LA Volume 88.0 cm 18 - 58 / 22 - 52 cm Ascending Aorta Diameter 3.7 cm DOPPLER AV Peak Velocity 184.0 cm/s AV Peak Gradient 13.5 mmHg AV Mean Velocity 128.0 cm/s AV Mean Gradient 7.0 mmHg AV Velocity Time Integral 41.7 cm LVOT Peak Velocity 69.2 cm/s LVOT Peak Gradient 1.9 mmHg LVOT Mean Velocity 42.9 cm/s LVOT Mean Gradient 1.0 mmHg LVOT Velocity Time Integral 14.5 cm LVOT Stroke Volume 36.9 cm AV Area Cont Eq vti 0.9 cm AV Area Cont Eq pk 1.0 cm MV Peak Velocity 126.0 cm/s MV Peak Gradient 6.4 mmHg MV Mean Velocity 77.9 cm/s MV Mean Gradient 3.0 mmHg Mitral E Point Velocity 122.0 cm/s Mitral A Point Velocity 42.9 cm/s Mitral E to A Ratio 2.8 MV PHT Velocity 141.0 cm/s MV Deceleration Jasper 388.0 cm/s MV Pressure Half Time 109.0 ms MV Area PHT 2.0 cm MV Deceleration Time 211.0 ms TR Peak Velocity 289.0 cm/s TR Peak Gradient 33.4 mmHg Right Atrial Pressure 5.0 mmHg Pulmonary Artery Systolic Pressu 38.4 mmHg Right Ventricular Systolic Press 38.4 mmHg PV Peak Velocity 86.9 cm/s PV Peak Gradient 3.0 mmHg PV Mean Velocity 61.9 cm/s PV Mean Gradient 2.0 mmHg PV Velocity Time Integral 20.2 cm LV E' Lateral Velocity 9.1 cm/s Mitral E to LV E' Lateral Ratio 13.5 LV E' Septal Velocity 5.5 cm/s Mitral E to LV E' Septal Ratio 22.3
--- NOTE | 2017-02-14 13:28 | Patient Discharge Instructions ---
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 Diet Recommended Diet: Heart Healthy Activity Activity Self Limited: Yes Acute Coronary Syndrome Inclusion Criteria At DC or during hospital stay patient has or had the following: ACS DIAGNOSIS No Discharge Core Measures Meds if any: Prescribed or Continued at Discharge Meds if any: NOT Prescribed or Continued at Discharge Congestive Heart Failure Inclusion Criteria At DC or during hospital stay patient has or had the following: CHF DIAGNOSIS No Discharge Core Measures Meds if any: Prescribed or Continued at Discharge Meds if any: NOT Prescribed or Continued at Discharge Cerebrovascular accident Inclusion Criteria At DC or during hospital stay patient has or had the following: CVA/TIA Diagnosis No Discharge Core Measures Meds if any: Prescribed or Continued at Discharge Meds if any: NOT Prescribed or Continued at Discharge Venous thromboembolism Inclusion Criteria VTE Diagnosis No VTE Type NONE VTE Confirmed by (Test) NONE Discharge Core Measures - Per Current guidelines, there needs to be overlap - treatment for the first 5 days of Warfarin therapy. - If discharged on Warfarin prior to 5 days of - overlap therapy, the patient will need to be - assessed for post discharge needs including - *Post discharge parental anticoagulation - *Warfarin and/or parental anticoagulation education - *Follow up date to check INR post discharge At least 5 days overlap therapy as Inpatient No Meds if any: Prescribed or Continued at Discharge Note: Overlap Therapy is Warfarin and Anticoagulant Meds if any: NOT Prescribed or Continued at Discharge
== END 2017-02-14 15:45 ==
LOC: ERH 13:23 → ERHI 16:34 → 1NO 16:34 → EDBEDREQ 17:24 → ENRESERV 17:26 → ENTRNSPT 17:54 → CMPTRNSPT 18:16 → 1NO 18:30 → ENPENDDIS 02-14 13:33 → 1NO 02-14 15:45
PROVIDERS: Emergency Medicine; ADMIT Internal Medicine
DX: R42 Dizziness and giddiness (principal); I25.10 Atherosclerotic heart disease of native coronary artery without angina pectoris; I10 Essential (primary) hypertension; E78.5 Hyperlipidemia, unspecified; I48.91 Unspecified atrial fibrillation; Z95.2 Presence of prosthetic heart valve; Z95.1 Presence of aortocoronary bypass graft; Z79.01 Long term (current) use of anticoagulants; Z79.82 Long term (current) use of aspirin
CPT/HCPCS: 6020; 70551; 92610-GN; 93005; 93010; 93306; G0378; G8996-GN; G8997-GN; G8998-GN